=== PATIENT | female | born 1970 | race Caucasian/White ===

== ENCOUNTER 2024-05-29 06:36 | Day surgery (SDC) | payer OTHER ==
[2024-05-29] MEDS: Lactated Ringers 1,000 ML IV SCH (07:32)
[2024-05-29] MEDS ORDERED: fentaNYL 100 MCG/2 ML SDV ONE (07:35)
[2024-05-29] MEDS ORDERED: Propofol 200 MG/20 ML SDV ONE (07:35)
[2024-05-29] MEDS ORDERED: Midazolam 1 MG/ML 2 ML SDV ONE (07:35)
[2024-05-29 08:48] VITALS: PULSE 76
[2024-05-29 09:21] VITALS: BP 117/66
== END 2024-05-29 09:35 | disposition home or self-care (01) ==
LOC: JP.SDS 06:36
PROVIDERS: ATTEND Surgery
DX: Z12.11 Encounter for screening for malignant neoplasm of colon (principal)
CPT/HCPCS: 45378; J2250; J2704; J3010; J7120; 00812-QZ